=== PATIENT | male | born 1985 | race Two or more races ===

== ENCOUNTER 2019-02-07 06:25 | Emergency (ER) | payer MEDICAID, OTHER ==
[~2019-02-07] VITALS: Ht 172.7 cm; Wt 86.6 kg
[2019-02-07] MEDS ORDERED: LORAZEPAM INJ 2 MG/ML VIAL ONE ×2 (06:39→08:48)
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
[2019-02-07] MEDS: LORAZEPAM INJ 2 MG/ML VIAL IV ONE ×2 (06:50→09:08)
[2019-02-07 07:19] LABS: BASOPHILS % (AUTO) 0.3 % (0.0-2.0); HEMATOCRIT 49 % (39-51); HEMOGLOBIN 17.3 g/dL (13.5-17.5); LYMPHOCYTES # (AUTO) 1.3 /CMM (0.8-4.8); LYMPHOCYTES % (AUTO) 10.1 % (20.0-44.0); MEAN CORPUSCULAR HGB CONC 35 g/dl (31.0-36.0); MEAN CORPUSCULAR VOLUME 84 fL (80-96); MONOCYTES # (AUTO) 0.8 /CMM (0.1-1.30); NEUTROPHILS # (AUTO) 10.9 /CMM (1.8-8.9); NEUTROPHILS % (AUTO) 83.6 % (43.0-81.0); PLATELET COUNT (AUTO) 248 /CMM (150-450); RED BLOOD CELL COUNT(AUTO) 5.83 MIL/uL (4.5-6.0)
[2019-02-07 07:32] LABS: APPEARANCE,URINE Clear (CLEAR); BILIRUBIN,URINE Negative (NEGATIVE); BLOOD, URINE Small Ery/uL (NEGATIVE); COLOR,URINE Yellow (YELLOW); KETONES,URINE Negative (NEGATIVE); LEUKOCYTE ESTERASE ,URINE Negative (NEGATIVE); NITRITE, URINE Negative (NEGATIVE); PROTEIN,URINE 30 mg/dl (NEGATIVE); UGLUCOSE Negative (NEGATIVE); UROBILINOGEN,URINE 0.2 EU/dL (0.2)
[2019-02-07 07:32] LABS: CALCIUM, SERUM 9.3 mg/dL (8.5-10.1); CREATININE 0.9 mg/dL (0.6-1.3); POTASSIUM 3.8 mmol/L (3.5-5.1)
[2019-02-07 07:37] LABS: ALBUMIN 4.6 g/dL (3.4-5.0); BILIRUBIN,TOTAL 0.2 mg/dL (0.2-1.0); SALICYLATE 2.3 mg/dL (2.8-20.0); TOTAL PROTEIN, SERUM 8.1 g/dL (6.4-8.2)
[2019-02-07 07:38] LABS: BACTERIA,URINE None seen /HPF (None Seen); RBC,URINE 0-2 /HPF (0-2); SQUAMOUS EPITHELIAL CELL,UR Few /HPF (None Seen); WBC,URINE 0-2 /HPF (0-3)
--- NOTE | 2019-02-07 08:36 | NUR ---
PATIENT REQUESTED TO TALK TO MAINTENANCE SHOP MANAGER, ART CHRISTINE SUP CALLED
[2019-02-07] MEDS ORDERED: OLANZAPINE 10 MG VIAL IM ONE (08:48)
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
[2019-02-07] MEDS: OLANZAPINE 10 MG VIAL IM ONE (09:06)
--- NOTE | 2019-02-07 14:45 | NUR ---
pamela STUDENT COUNSELOR at bedside for eval.
[2019-02-07 15:45] VITALS: BP 135/71
--- NOTE | 2019-02-07 15:46 | NUR ---
Patient discharged to home in stable condition. Written and verbal after care instructions given. Patient verbalizes understanding of instruction.IV removed. Catheter intact and site benign. Pressure and 4x4 applied to site. No bleeding noted. Per pamela RECEPTION patient does not meet criteria for admission. Per patient he found a place for detox and spoke to her mom and will see patient at the place. Patient is ambulatory with steady gait. In no apparent distress noted.
== END 2019-02-07 15:46 | disposition home or self-care (01) ==
LOC: ER 06:27
DX: F19.10 Other psychoactive substance abuse, uncomplicated (principal); R00.0 Tachycardia, unspecified; F32.9 Major depressive disorder, single episode, unspecified; F12.10 Cannabis abuse, uncomplicated; F14.10 Cocaine abuse, uncomplicated; Z98.890 Other specified postprocedural states
CPT/HCPCS: 36415; 80048; 80076; 80305; 80307 ×2; 80329; 81001; 84484; 85025; 93005; 96372; 96374; 96376; 99284; G0480; J2060 ×2; J3490; 81000-TC

== ENCOUNTER 2019-11-07 20:59 | Emergency (ER) | payer MEDICAID, OTHER ==
[~2019-11-07] VITALS: Ht 172.7 cm; Wt 83.9 kg
[2019-11-07 21:00] VITALS: BP 141/95
[2019-11-07] MEDS ORDERED: LORAZEPAM 1 MG TABLET ONE (21:38)
[2019-11-07] MEDS ORDERED: LORAZEPAM 1 MG TABLET PO ONE (22:00)
== END 2019-11-07 22:14 | disposition home or self-care (01) ==
LOC: ER 20:59
DX: F10.239 Alcohol dependence with withdrawal, unspecified (principal); F19.10 Other psychoactive substance abuse, uncomplicated; F14.10 Cocaine abuse, uncomplicated; F32.9 Major depressive disorder, single episode, unspecified; Y90.9 Presence of alcohol in blood, level not specified

== ENCOUNTER 2019-12-27 13:42 | Emergency (ER) | payer MEDICAID, OTHER ==
[~2019-12-27] VITALS: Ht 182.9 cm; Wt 74.8 kg
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
[2019-12-27] MEDS ORDERED: HALOPERIDOL LACTATE INJ 5 MG/ML VIAL ONE (13:50)
[2019-12-27] MEDS ORDERED: LORAZEPAM INJ 2 MG/ML VIAL ONE (13:51)
[2019-12-27] MEDS ORDERED: LORAZEPAM INJ 2 MG/ML VIAL IM ONE (14:00)
[2019-12-27] MEDS ORDERED: HALOPERIDOL LACTATE INJ 5 MG/ML VIAL IM ONE (14:00)
[2019-12-27 14:28] LABS: BASOPHILS % (AUTO) 0.6 % (0.0-2.0); EOSINOPHILS % (AUTO) 1.4 % (0.0-6.0); HEMATOCRIT 46 % (39-51); HEMOGLOBIN 15.4 g/dL (13.5-17.5); LYMPHOCYTES # (AUTO) 1.6 /CMM (0.8-4.8); LYMPHOCYTES % (AUTO) 25.5 % (20.0-44.0); MEAN CORPUSCULAR HGB CONC 34 g/dl (31.0-36.0); MEAN CORPUSCULAR VOLUME 90 fL (80-96); MONOCYTES # (AUTO) 0.6 /CMM (0.1-1.30); MONOCYTES % (AUTO) 9.1 % (2.0-12.0); NEUTROPHILS % (AUTO) 63.4 % (43.0-81.0); PLATELET COUNT (AUTO) 226 /CMM (150-450); RED BLOOD CELL COUNT(AUTO) 5.06 MIL/uL (4.5-6.0); WHITE BLOOD COUNT (AUTO) 6.3 K/uL (4.3-11.0)
[2019-12-27 14:31] LABS: CALCIUM, SERUM 8.3 mg/dL (8.5-10.1); CREATININE 0.9 mg/dL (0.6-1.3); POTASSIUM 3.7 mmol/L (3.5-5.1)
[2019-12-27 14:39] LABS: ALBUMIN 4.1 g/dL (3.4-5.0); BILIRUBIN,DIRECT 0.1 mg/dL (0.0-0.2); BILIRUBIN,TOTAL 0.2 mg/dL (0.2-1.0); SALICYLATE 1.4 mg/dL (2.8-20.0); TOTAL PROTEIN, SERUM 7.4 g/dL (6.4-8.2)
--- NOTE | 2019-12-27 15:22 | NUR ---
PATIENT IN BED ASLEEP, EASILY AROUSABLE BY VOICE. PLACED ON 1POINT RESTRAINT, STILL CURSING AND THREATENING. CIRCULATION CHECK DONE, SKIN INTACT. WILL CONTINUE TO MONITOR ACCORDINGLY
--- NOTE | 2019-12-27 15:34 | NUR ---
URINE SAMPLE COLLECTED VIA STRAIGHT CATHETER, SAMPLE SENT TO LAB
--- NOTE | 2019-12-27 15:50 | NUR ---
PATIENT IN BED ASLEEP, EASILY AROUSABLE BY VOICE. SITTER AT BEDSIDE, ON 1POINT RESTRAINT. CIRCULATION CHECK DONE, SKIN INTACT. WILL CONTINUE TO MONITOR ACCORDINGLY
[2019-12-27 15:51] LABS: APPEARANCE,URINE Clear (CLEAR); BILIRUBIN,URINE Negative (NEGATIVE); BLOOD, URINE Trace-lysed Ery/uL (NEGATIVE); COLOR,URINE Yellow (YELLOW); KETONES,URINE Negative (NEGATIVE); LEUKOCYTE ESTERASE ,URINE Negative (NEGATIVE); NITRITE, URINE Negative (NEGATIVE); PROTEIN,URINE Negative (NEGATIVE); UGLUCOSE Negative (NEGATIVE); UROBILINOGEN,URINE 0.2 EU/dL (0.2)
[2019-12-27 16:14] LABS: BACTERIA,URINE Rare /HPF (None Seen); RBC,URINE 0-2 /HPF (0-2); SQUAMOUS EPITHELIAL CELL,UR Rare /HPF (None Seen); WBC,URINE 0-2 /HPF (0-3)
--- NOTE | 2019-12-27 16:32 | NUR ---
PATIENT IN BED ASLEEP, EASILY AROUSABLE BY VOICE. SITTER AT BEDSIDE, ON 1POINT RESTRAINT. CIRCULATION CHECK DONE, SKIN INTACT. WILL CONTINUE TO MONITOR ACCORDINGLY
--- NOTE | 2019-12-27 17:42 | NUR ---
PATIENT IN BED AWAKE. SITTER AT BEDSIDE, ON 1POINT RESTRAINT. CIRCULATION CHECK DONE, SKIN INTACT. WILL CONTINUE TO MONITOR ACCORDINGLY
--- NOTE | 2019-12-27 18:11 | NUR ---
MOTHER: EMILY GALLARDO # [phone]
--- NOTE | 2019-12-27 18:12 | NUR ---
PROVIDED W FOOD TRAY, TOLERATED PO WELL.
--- NOTE | 2019-12-27 18:22 | NUR ---
PATIENT IN BED, AWAKE, MORE COOPERATIVE. REMOVED ON 1 POINT RESTRAINT. [facility] DONE. HOOKED TO MONITOR, 1:1 SITTER AT BEDSIDE. WILL CONTINUE TO MONITOR ACCORDINGLY.
--- NOTE | 2019-12-27 19:16 | NUR ---
REPORT GIVEN TO JEWEL BULLARD FOR RIC
--- NOTE | 2019-12-27 19:37 | NUR ---
TOOK OVER PT CARE. PT COOPERATIVE, AAOX4. RESTRAIN REMOVED. IN BED, PROVIDED WITH BLANKETS.
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
[2019-12-27 19:58] VITALS: BP 122/68
== END 2019-12-27 19:59 | disposition home or self-care (01) ==
LOC: ER 13:44
DX: F10.129 Alcohol abuse with intoxication, unspecified (principal); F14.10 Cocaine abuse, uncomplicated; F12.10 Cannabis abuse, uncomplicated; R45.1 Restlessness and agitation; F32.9 Major depressive disorder, single episode, unspecified; R41.82 Altered mental status, unspecified; Y90.8 Blood alcohol level of 240 mg/100 ml or more; Z98.890 Other specified postprocedural states
CPT/HCPCS: 36415; 80048; 80076; 80305; 80307; 80329; 81001; 85025; 96372 ×2; 99285; G0480; J1630; J2060; 81000-TC

== ENCOUNTER 2019-12-28 16:24 | Emergency (ER) | payer MEDICAID ==
[~2019-12-28] VITALS: Ht 177.8 cm; Wt 86.2 kg
--- NOTE | 2019-12-28 16:45 | NUR ---
CAME IN FOR ALCOHOL WITHDRAWAL; LAST DRINK WAS YESTERDAY, TO ER BED 11, HOOK[facility] MONITOR, [facility]I
--- NOTE | 2019-12-28 16:50 | NUR ---
DR HERRERA AT BEDSIDE
[2019-12-28] MEDS ORDERED: CHLORDIAZEPOXIDE HCL 25 MG CAPSULE ONE (16:59)
[2019-12-28] MEDS ORDERED: DEXTROSE 50%-WATER 50 ML DISP.SYRIN IV ONE (17:00)
[2019-12-28] MEDS ORDERED: ALBUMIN 25% 12.5 GM/50 ML BOTTLE IV ONE (17:00)
[2019-12-28] MEDS ORDERED: IV NS 0.9% 1,000 ML BAG IV ONE (17:00)
[2019-12-28] MEDS: CHLORDIAZEPOXIDE HCL 25 MG CAPSULE PO ONE (17:09)
[2019-12-28 17:19] VITALS: BP 132/77
--- NOTE | 2019-12-28 17:19 | NUR ---
Patient discharged to home in stable condition. Written and verbal after care instructions given. Patient verbalizes understanding of instruction.
== END 2019-12-28 17:20 | disposition home or self-care (01) ==
LOC: ER 16:36
DX: F10.239 Alcohol dependence with withdrawal, unspecified (principal); F32.9 Major depressive disorder, single episode, unspecified; Y90.9 Presence of alcohol in blood, level not specified

== ENCOUNTER 2020-08-24 22:45 | Emergency (ER) | payer MEDICAID, OTHER ==
[~2020-08-24] VITALS: Ht 177.8 cm; Wt 86.2 kg
--- NOTE | 2020-08-24 23:07 | NUR ---
SCOTTY AND FAROOQP TO ER BED 7. AAOX4. AGITATED AND BELIGERENT. YELLING AND SCREAMING AT THE OFFICERS. BROUGHT IN FOR R ARM PAIN AND R KNEE PAIN W/ NOTED ABRASSION ON R KNEE. ROM INTACT. DENIES ANY HEAD TRAUMA NOR KO. WAS AT THE BEDSIDE FOR EVAL. ORDERS RECEIVED, NOTED AND CARRIED OUT
--- NOTE | 2020-08-24 23:09 | NUR ---
lapd at bedside. pt verbally agressive and disrespectful towards lapd and er staff.
[2020-08-24] MEDS ORDERED: TDAP [DIPH/PERTUSSIS/TET] 0.5 ML VIAL IM ONE ×2 (23:30→23:37)
--- NOTE | 2020-08-24 23:35 | NUR ---
PT ENDORSED TO ALEAH GARCÍA FOR RIC
[2020-08-25 00:10] VITALS: BP 127/71
--- NOTE | 2020-08-25 00:10 | NUR ---
Patient discharged in stable condition. Written and verbal after care instructions given. Patient verbalizes understanding of instruction. Pt in custody.
== END 2020-08-25 00:15 ==
LOC: ER 22:46
DX: S50.311A Abrasion of right elbow, initial encounter (principal); S80.211A Abrasion, right knee, initial encounter; S40.211A Abrasion of right shoulder, initial encounter; S50.811A Abrasion of right forearm, initial encounter; R51.9 Headache, unspecified; Z98.890 Other specified postprocedural states; V49.49XA Driver injured in collision with other motor vehicles in traffic accident, initial encounter; Y93.89 Activity, other specified; Y92.488 Other paved roadways as the place of occurrence of the external cause; Y99.8 Other external cause status
CPT/HCPCS: 70450-TC; 72125-TC; 73020; 73070-TC; 73560-TC; 90715

== ENCOUNTER 2021-03-05 01:31 | Emergency (ER) | payer OTHER ==
[~2021-03-05] VITALS: Ht 172.7 cm; Wt 70.8 kg
[2021-03-05 02:13] LABS: BILIRUBIN,URINE Negative (NEGATIVE); COLOR,URINE YELLOW (YELLOW); LEUKOCYTE ESTERASE ,URINE Negative (NEGATIVE); NITRITE, URINE Negative (NEGATIVE); PH,URINE 5.5 (5.0-8.0); PROTEIN,URINE Trace mg/dl (NEGATIVE); UGLUCOSE Negative (NEGATIVE); UROBILINOGEN,URINE 0.2 EU/dL (0.2)
[2021-03-05 02:19] LABS: BASOPHILS # (AUTO) 0.1 /CMM (0.0-0.2); EOSINOPHILS % (AUTO) 2.4 % (0.0-6.0); HEMATOCRIT 45 % (39-51); HEMOGLOBIN 14.9 g/dL (13.5-17.5); LYMPHOCYTES # (AUTO) 1.8 /CMM (0.8-4.8); LYMPHOCYTES % (AUTO) 31.7 % (20.0-44.0); MEAN CORPUSCULAR HGB CONC 33 g/dl (31.0-36.0); MEAN CORPUSCULAR VOLUME 86 fL (80-96); MONOCYTES # (AUTO) 0.5 /CMM (0.1-1.30); MONOCYTES % (AUTO) 9.4 % (2.0-12.0); NEUTROPHILS # (AUTO) 3.2 /CMM (1.8-8.9); NEUTROPHILS % (AUTO) 55.5 % (43.0-81.0); PLATELET COUNT (AUTO) 257 /CMM (150-450); RED BLOOD CELL COUNT(AUTO) 5.21 MIL/uL (4.5-6.0); WHITE BLOOD COUNT (AUTO) 5.7 K/uL (4.3-11.0)
[2021-03-05 02:23] LABS: CREATININE 1.1 mg/dL (0.6-1.3); POTASSIUM 3.6 mmol/L (3.5-5.1)
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
[2021-03-05 02:27] LABS: BILIRUBIN,DIRECT 0.1 mg/dL (0.0-0.2); BILIRUBIN,TOTAL 0.1 mg/dL (0.2-1.0); TOTAL PROTEIN, SERUM 7.2 g/dL (6.4-8.2)
--- NOTE | 2021-03-05 04:35 | NUR ---
ACCEPTED [phone]
--- NOTE | 2021-03-05 04:47 | NUR ---
CALL THE CAR FOR TRANSPORTATION RESERVATION #[id number]
--- NOTE | 2021-03-05 05:02 | NUR ---
[phone]
--- NOTE | 2021-03-05 05:12 | NUR ---
REPORT GIVEN TO ALEAH FRAIRE FOR RIC
--- NOTE | 2021-03-05 05:20 | NUR ---
ELPIDIO FRAIRE FROM [facility], REQUESTING TO SEND PATIENT AFTER [phone]. CALLED CALL THE CAR, [facility] [place] E[place] [phone]
--- NOTE | 2021-03-05 08:13 | NUR ---
The patient is in stable condition and transfered to [facility] via arranged transpo.
[2021-03-05 08:17] VITALS: BP 123/72
== END 2021-03-05 08:17 ==
LOC: ER 01:34
DX: R45.851 Suicidal ideations (principal); F19.10 Other psychoactive substance abuse, uncomplicated; Z20.822 Contact with and (suspected) exposure to COVID-19; Z59.0 Homelessness; F32.9 Major depressive disorder, single episode, unspecified
CPT/HCPCS: 36415; 80048; 80076; 80143; 80307; 80320; 81003; 85025; 87426; 99285; C9803; G0480